=== PATIENT | male | born 1990 | race Caucasian/White ===

== ENCOUNTER 2023-01-13 23:30 | Emergency (ER) | payer MEDICAID ==
[~2023-01-13] VITALS: Ht 170.2 cm; Wt 75.7 kg
[2023-01-13 23:41] VITALS: BP 144/94; PULSE 71; RESP 16; TEMP 98.5; O2SAT 99
[2023-01-13] MEDS ORDERED: LIDOCAINE/EPI MPF 1%1:200000 30 ML VIAL INJ ONE (23:55)
[2023-01-14 00:20] VITALS: BP 136/81; PULSE 71; RESP 16; TEMP 98.5; O2SAT 99
[2023-01-14] MEDS ORDERED: BACITRACIN OINT 500 UNITS/GM PKT TP ONE (00:20)
== END 2023-01-14 00:20 | disposition home or self-care (01) ==
LOC: MED 23:30
DX: S01.81XA Laceration without foreign body of other part of head, initial encounter (principal); W03.XXXA Other fall on same level due to collision with another person, initial encounter; Y93.66 Activity, soccer; Y92.89 Other specified places as the place of occurrence of the external cause; Y99.8 Other external cause status
CPT/HCPCS: 12013; 99282; J2001